=== PATIENT | male | born 1985 | race African-American/Black ===

== ENCOUNTER 2018-01-09 22:57 | Emergency (ER) | payer MEDICARE, OTHER ==
[~2018-01-09] VITALS: Ht 177.8 cm; Wt 81.6 kg
[2018-01-09 23:30] VITALS: BP 122/83
--- NOTE | 2018-01-09 23:31 | Emergency Room Report ---
History of Present Illness General Chief Complaint: Behavioral Complaint Source: Patient Present Illness HPI This patient was brought in by police he was being transported to [facility] and en route he c/o sob so he was diverted here. He was already accepted by psych team for admission. Apparently there has been a lot of phone calls about his behavior so even though not suicidal, due to escalating numbers of 911 calls from neighbors and family, psych admission arranged. To me patient denies any problems/issues/complaints. No trauma, no fever. Allergies: Coded Allergies: No Known Allergies (Unverified , 01/09/18) Nursing Documentation-[place] Past Medical History: No Stated History Review of Systems Constitutional: Reports: no symptoms Eye: Reports: no symptoms ENT: Reports: no symptoms Respiratory: Reports: no symptoms Cardiovascular: Reports: no symptoms Gastrointestinal: Reports: no symptoms Genitourinary: Reports: no symptoms Musculoskeletal: Reports: no symptoms Skin: Reports: no symptoms Psychiatric: Reports: no symptoms Neurological: Reports: no symptoms Endocrine: Reports: no symptoms Hematologic/Lymphatic: Reports: no symptoms Allergic: Reports: no symptoms All Other Systems: negative except mentioned in HPI Physical Exam Vital Signs Date Time Temp Pulse Resp B/P (MAP) Pulse Ox O2 Delivery O2 Flow Rate FiO2 01/09/18 22:49 98.4 86 18 122/83 99 Room Air 98.4 Sp02 EP Interpretation: reviewed, normal General Appearance: normal inspection, well appearing, no apparent distress, alert, GCS 15, non-toxic, other - comfortable, no dyspnea, RR 12, pulse ox 100% Head: normocephalic, atraumatic Eyes: bilateral eye normal inspection, bilateral eye PERRL, bilateral eye EOMI ENT: normal ENT inspection, hearing grossly normal, normal pharynx, no angioedema, normal voice, moist mucus membranes Neck: normal inspection, full range of motion, supple, no meningismus, no bony tend Respiratory: normal inspection, lungs clear, normal breath sounds, no rhonchi, no respiratory distress, no retraction, no accessory muscle use, no wheezing Cardiovascular #1: normal inspection, regular rate, rhythm, no edema Gastrointestinal: normal inspection, normal bowel sounds, non tender, soft, no mass, non-distended Musculoskeletal: gait/station normal, normal range of motion Neurologic: normal inspection, alert, oriented x3, responsive, motor strength/ tone normal Psychiatric: judgement/insight normal, memory normal, no delusions, other - flat affect Suicide Risk Assessment: Suicidal Ideation: No Had intent to initiate attempt: No Pt's plan for suicide attempt: No Has means to complete attempt: No Skin: normal inspection, normal color, no rash, warm/dry Medical Decision Making Diagnostic Impression: Primary Impression: Behavioral disorder ER Course calm here; VSS, labs unremarkable. RR 12, normal pulse ox. Medically cleared for d/c. Last Vital Signs Date Time Temp Pulse Resp B/P (MAP) Pulse Ox O2 Delivery O2 Flow Rate FiO2 01/09/18 22:49 98.4 86 18 122/83 99 Room Air 98.4 Status: unchanged Disposition: XFER TO PSYCH HOSP/UNIT Patient Instructions: Self-Destructive Behavior Azam Faith M.D. Jan 09, 2018 23:31
[2018-01-10] VITALS (22 sets, daily range): BP systolic 98–135; BP diastolic 54–87
[2018-01-10 01:14] LABS: BASOPHILS % (AUTO) 1.5 % (0.0-2.0); EOSINOPHILS % (AUTO) 8.3 % (0.0-3.0); HEMATOCRIT 39.1 % (42.0-52.0); HEMOGLOBIN 14.1 G/DL (14.2-18.0); LYMPHOCYTES % (AUTO) 48.6 % (20.0-45.0); MEAN CORPUSCULAR VOLUME 84 FL (80-99); MONOCYTES % (AUTO) 5.3 % (1.0-10.0); NEUTROPHILS % (AUTO) 36.4 % (45.0-75.0); PLATELET COUNT 181 K/UL (150-450); RED BLOOD COUNT 4.66 M/UL (4.70-6.10); RED CELL DISTRIBUTION WIDTH 9.8 % (11.6-14.8); WHITE BLOOD COUNT 5.2 K/UL (4.8-10.8)
[2018-01-10 01:18] LABS: ANION GAP 3 mmol/L (5-15); BLOOD UREA NITROGEN 19 mg/dL (7-18); CALCIUM 8.5 MG/DL (8.5-10.1); CARBON DIOXIDE 30 MMOL/L (21-32); CHLORIDE 107 MMOL/L (98-107); CREATININE 1.2 MG/DL (0.55-1.30); POTASSIUM 3.7 MMOL/L (3.5-5.1); SODIUM 140 MMOL/L (136-145)
[2018-01-10 01:22] LABS: ALANINE AMINOTRANSFERASE 36 U/L (12-78); ALBUMIN 3.4 G/DL (3.4-5.0); ALBUMIN/GLOBULIN RATIO 1.1 (1.0-2.7); ALKALINE PHOSPHATASE 66 U/L (46-116); ASPARTATE AMINO TRANSFERASE 21 U/L (15-37); BILIRUBIN,TOTAL 0.4 MG/DL (0.2-1.0)
--- NOTE | 2018-01-10 10:48 | Emergency Room Report ---
Physical Exam Vital Signs Date Time Temp Pulse Resp B/P (MAP) Pulse Ox O2 Delivery O2 Flow Rate FiO2 01/09/18 22:49 98.4 86 18 122/83 99 Room Air 98.4 Medical Decision Making Diagnostic Impression: Primary Impression: Behavioral disorder ER Course Our nursing staff contacted Steven's mother Karley. Mother explains that she is in the process of obtaining a restraining order against her son. 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 Also has a history of ADHD and phobia. He has been followed by mental health specialist. She was unable to provide a list of his medications. She was unable to provide name of his mental health advocate. Our nursing staff spoke to [facility]. Patient will need to be out of restraints for 4 hours before mental health assessment. I have provided chemical restraint haldol and ativan IM. Last Vital Signs Date Time Temp Pulse Resp B/P (MAP) Pulse Ox O2 Delivery O2 Flow Rate FiO2 01/10/18 10:35 98.0 82 17 99 Room Air 01/10/18 10:12 128/78 Disposition: PSYCH HOSP/UNIT Referrals: NOT CHOSEN IPA/,REFERRING (PCP) Patient Instructions: Self-Destructive Behavior Shasha Álvarez MD Jan 10, 2018 10:48
[2018-01-10] MEDS ORDERED: LORazepam Inj 2mg/ml 1ml IM ONE ×2 (11:00)
[2018-01-10] MEDS ORDERED: Haloperidol 5mg/ml Inj IM ONE (11:00)
== END 2018-01-10 19:01 | disposition home or self-care (01) ==
LOC: EDBD 22:57 → EMR 23:30
DX: F91.9 Conduct disorder, unspecified (principal)
CPT/HCPCS: 36415; 80053; 80307; 85025; 96372; 99285; G0480; J1630; 80329